=== PATIENT | female | born 1965 | race Caucasian/White ===

== ENCOUNTER 2019-09-02 15:39 | Emergency (ER) | payer OTHER ==
[~2019-09-02] VITALS: Ht 157.5 cm; Wt 86.2 kg
[2019-09-02 16:29] LABS: ABSOLUTE LYMPHOCYTES 1.9 thou/uL (0.8-5.3); ABSOLUTE MONOCYTES 0.4 thou/uL (0.0-1.2); ABSOLUTE NEUTROPHILS 6.5 thou/uL (1.6-8.1); BASOPHILS 0.5 %; EOSINOPHILS 0.5 %; HEMATOCRIT 45.1 % (37.0-47.0); HEMOGLOBIN 15.5 gm/dL (12.0-15.0); LYMPHOCYTES 21.2 %; MCH 30.3 pg (26.0-34.0); MCHC 34.3 g/dL (28.0-37.0); MCV 88.3 fL (80.0-100.0); MONOCYTES 4.9 %; MPV 8.7 fl. (7.2-11.1); NUCLEATED RBCS 0 /100WBC; PLATELET COUNT* 306 thou/uL (150-400); POLYS 72.9 %; RBC 5.11 mil/uL (4.20-5.00); RDW-CV 13.2 % (10.5-14.5); WBC 8.9 thou/uL (4.0-11.0)
[2019-09-02 16:35] LABS: POTASSIUM 3.6 mmol/L (3.5-5.1)
[2019-09-02 16:40] LABS: ALBUMIN 4.5 g/dL (3.4-5.0); TOTAL BILIRUBIN 0.4 mg/dL (<0.1-1.0)
[2019-09-02] MEDS ORDERED: MUCUS ER1200 MG PO (17:21)
[2019-09-02 18:10] VITALS: BP 196/97
== END 2019-09-02 18:17 | disposition home or self-care (01) ==
LOC: M.ERS 15:39
PROVIDERS: Personal Emergency Response Attendant
DX: J32.9 Chronic sinusitis, unspecified (principal); Z88.5 Allergy status to narcotic agent